=== PATIENT | female | born 1995 | race Caucasian/White ===

== ENCOUNTER → 2017-03-28 | Outpatient (CLI) | payer OTHER ==
[~2017-03-28] VITALS: Ht 170.2 cm; Wt 78.5 kg
[~2017-03-28] MED LIST: PREN1TAB59 PO
--- NOTE | 2017-03-28 15:59 | DIREP ---
PROCEDURE:US BIOPHYSICAL PROFILE W/O NON STRESS COMPARISON:None. INDICATIONS:O28.843 UTERINE SIZE-DATE DISCREPANCY FINDINGS: Breathing:Normal, 2. Movement:Normal, 2. Tone:Normal, 2. Fluid:Normal, 2. Summary Fetus Summary Estimated Weight:3218.65 g; 86.1 percentile Heart Rate:135.96 1/min Gestational Age (BPD):36 weeks, 5 days; 75.1 percentile Gestational Age (HC):39 weeks, 1 day; 87.9 percentile Gestational Age (AC):38 weeks, 0 days; 95 percentile Gestational Age (FL):36 weeks, 0 days; 39.9 percentile Amniotic Sac Amniotic Fluid Index:17.99 cm Pelvis and Uterus Cervix Length:3.10 cm EGA based on biometrics: 37 W 3 D Clinical EGA: 36 W 1 D RADHA based on biometrics: April 15, 2017 Clinical RADHA: April 24, 2017 Cervical Length: 3.1 cm MAGDIEL: 18 cm Position: Cephalic Placental Location: Anterior Previa: None demonstrated. Survey anatomic evaluation was not performed at this time. No abnormalities are visible. CONCLUSION:Normal biophysical profile score of 8/8. Live intrauterine gestation with estimated sonographic age of 37 weeks 3 days. Dictated by: NAIN Physician on 03/28/2017 at 02:54 PM
== END | disposition home or self-care (01) ==
LOC: RAD 13:57
PROVIDERS: ATTEND Hospitalist
DX: O26.843 Uterine size-date discrepancy, third trimester (principal); Z3A.37 37 weeks gestation of pregnancy
CPT/HCPCS: 59025; 76815; 76819

== ENCOUNTER 2017-04-19 17:34 | Observation (INO) | payer OTHER ==
[~2017-04-19] VITALS: Ht 170.2 cm; Wt 80.7 kg
[2017-04-22] MEDS ORDERED: HYDR-926 PO (13:38)
[2017-04-22] MEDS ORDERED: IBUP800T PO (13:38)
== END 2017-04-19 19:32 | disposition home or self-care (01) ==
LOC: ATP 17:34
PROVIDERS: ADMIT Hospitalist; ATTEND Hospitalist
DX: O62.9 Abnormality of forces of labor, unspecified (principal); Z3A.39 39 weeks gestation of pregnancy
CPT/HCPCS: 59025; G0378 ×2